=== PATIENT | male | born 1970 ===

== ENCOUNTER 2020-08-17 07:41 | Day surgery (SDC) | payer OTHER ==
[2020-08-15 10:35] VITALS: BMI 25.6
[2020-08-17] MEDS ORDERED: Heparin 10,000 UNITS/ 10 ML VIAL ONE (09:02)
[2020-08-17] MEDS ORDERED: Lidocaine 1% PF 5 ML VIAL ONE (09:17)
[2020-08-17] MEDS ORDERED: Rocuronium Bromide 10 MG/ML (10ML VIAL) ONE (09:17)
[2020-08-17] MEDS ORDERED: Ondansetron PF 4 MG/2 ML Vial ONE (09:17)
[2020-08-17] MEDS ORDERED: PROPOFOL 200 MG/20 ML VIAL ONE (09:17)
[2020-08-17] MEDS ORDERED: Dexamethasone 20 MG/5 ML VIAL ONE (09:17)
[2020-08-17] MEDS ORDERED: Glycopyrrolate 0.2 MG/ML 5 ML SYRINGE ONE (09:17)
[2020-08-17] MEDS ORDERED: Fentanyl 100 MCG/2 ML VIAL ONE (09:36)
[2020-08-17] MEDS ORDERED: Propofol 1,000 MG/100 ML VIAL IV ONE ×2 (09:36→10:58)
[2020-08-17] MEDS ORDERED: Midazolam HCl 2 mg/2 ml Vial ONE (09:48)
[2020-08-17] MEDS ORDERED: Heparin 25,000 units/D5W 500 ML ONE (09:52)
[2020-08-17] MEDS ORDERED: Protamine Sulfate 50 MG/5 ML VIAL ONE (12:55)
[2020-08-17] MEDS ORDERED: Acetaminophen/Codeine 30-300mg Tablet PO PRN ×2 (14:30)
[2020-08-17] MEDS ORDERED: HYDROcodone/Acetaminophen 5/325 mg Tablet PO PRN ×2 (14:30)
== END 2020-08-17 19:00 | disposition home or self-care (01) ==
LOC: CCL 07:41
PROVIDERS: ATTEND Internal Medicine Cardiovascular Disease
PROC: 02583ZZ Destruction of Conduction Mechanism, Percutaneous Approach (ICD-10-PCS; principal; 2020-08-17)
PROC: 02K83ZZ Map Conduction Mechanism, Percutaneous Approach (ICD-10-PCS; principal; 2020-08-17)
PROC: B24BZZ4 Ultrasonography of Heart with Aorta, Transesophageal (ICD-10-PCS; principal; 2020-08-17)
DX: I48.0 Paroxysmal atrial fibrillation (principal); E78.2 Mixed hyperlipidemia; Z87.891 Personal history of nicotine dependence; Z79.01 Long term (current) use of anticoagulants; Z79.899 Other long term (current) drug therapy; Z98.890 Other specified postprocedural states
CPT/HCPCS: 85347; 93005; 93010; 93312; 93613; 93655; 93656; 93662; C1730; C1731; C1732; C1753; C1894; C2630; J1100; J1644; J2250; J2405; J2704; J2720; J3010

== ENCOUNTER 2024-04-22 08:35 | Outpatient (CLI) | payer OTHER ==
[2024-04-22 10:04] LABS: #Basophils 0.03 10x3/uL (0.0-0.2); %Basophils 0.4 % (0.0-1.0); %Eosinophils 0.6 % (0.0-10.0); %Lymphocytes 21.4 % (21.0-51.0); %Monocytes 6.2 % (0.0-10.0); %Neutrophils 70.8 % (42.0-75.0); Hematocrit 47.1 % (42.0-52.0); Hemoglobin 16.3 g/dL (14.0-18.0); Mean Corpuscular HGB CONC 34.6 g/dL (32.0-36.0); Mean Corpuscular Hemoglobin 32.1 pg (27.0-31.0); Mean Corpuscular Volume 92.7 fL (78.0-98.0); Mean Platelet Volume 8.9 fL (7.4-10.4); Platelet Count 324 10x3/uL (130-400); RBC Distribution Width 11.8 % (11.5-14.5); Red Blood Cell (RBC) Count 5.08 mill/uL (4.70-6.10)
[2024-04-22 10:05] LABS: INR-International Normal Ratio 1.1; Prothrombin Time 13.8 sec (12.0-14.7)
[2024-04-22 10:11] LABS: Anion Gap 8 mmol/L (10-20); BUN (Urea Nitrogen) 11 mg/dL (8.4-25.7); Calc. Creatinine Clearance 0 mL/min (70-130); Calcium 9.5 mg/dL (7.8-10.44); Carbon Dioxide 29 mmol/L (22-29); Chloride 106 mmol/L (98-107); Estimated GFR 97; Glucose 97 mg/dL (70-105); Potassium 4.1 mmol/L (3.5-5.1); Sodium 139 mmol/L (136-145)
== END 2024-04-22 08:36 | disposition home or self-care (01) ==
LOC: LABBT 08:35
PROVIDERS: ATTEND Internal Medicine Cardiovascular Disease
DX: Z01.812 Encounter for preprocedural laboratory examination (principal); I48.0 Paroxysmal atrial fibrillation
CPT/HCPCS: 80048; 85025; 85610

== ENCOUNTER 2024-05-20 07:36 | Day surgery (SDC) | payer OTHER ==
[2024-04-22 09:04] VITALS: BMI 25.8
[2024-05-20] MEDS ORDERED: Protamine Sulfate 50 MG/5 ML VIAL ONE (08:47)
[2024-05-20] MEDS ORDERED: Heparin 10,000 UNITS/ 10 ML VIAL ONE (08:47)
[2024-05-20] MEDS ORDERED: Heparin 25,000 units/D5W 500 ML ONE (08:48)
[2024-05-20] MEDS ORDERED: fentaNYL 50 mcg/mL 1 mL Vial ONE ×2 (10:23→11:45)
[2024-05-20] MEDS ORDERED: Rocuronium Bromide 10 MG/ML (10ML VIAL) ONE (10:23)
[2024-05-20] MEDS ORDERED: Lidocaine 1% PF 5 ML VIAL ONE (10:24)
[2024-05-20] MEDS ORDERED: Ondansetron PF 4 MG/2 ML Vial ONE (10:24)
[2024-05-20] MEDS ORDERED: PROPOFOL 20 ML ONE (10:24)
[2024-05-20] MEDS ORDERED: Metoclopramide HCl 10 MG (2 mL) VIAL ONE (10:24)
[2024-05-20] MEDS ORDERED: Glycopyrrolate 0.2 MG/ML 5 ML SYRINGE ONE (11:01)
[2024-05-20] MEDS ORDERED: Isoproterenol 0.2 MG/1 ML AMP ONE (11:33)
[2024-05-20] MEDS ORDERED: SUGAMMADEX SODIUM 200 MG/2 ML VIAL ONE (12:27)
== END 2024-05-20 16:32 | disposition home or self-care (01) ==
LOC: SDC 07:36
PROVIDERS: ATTEND Internal Medicine Cardiovascular Disease
PROC: 02583ZZ Destruction of Conduction Mechanism, Percutaneous Approach (ICD-10-PCS; principal; 2024-05-20)
DX: I48.0 Paroxysmal atrial fibrillation (principal); I10 Essential (primary) hypertension; E78.5 Hyperlipidemia, unspecified; G47.30 Sleep apnea, unspecified; K21.9 Gastro-esophageal reflux disease without esophagitis; Z98.890 Other specified postprocedural states; Z79.01 Long term (current) use of anticoagulants; Z79.899 Other long term (current) drug therapy
CPT/HCPCS: 85347; 93005; 93010; 93623; 93656; 93657; C1732; C1733; C1759; C1760; C1766; C1769; C1893; C1894; J1644; J2405; J2704; J2720; J2765; J3010